=== PATIENT | female | born 1970 | race Caucasian/White ===

== ENCOUNTER 2018-02-19 15:31 | Emergency (ER) | payer MEDICARE, MEDICAID ==
[~2018-02-19] VITALS: Ht 170.2 cm; Wt 55.5 kg
[2018-02-19 22:04] VITALS: BP 117/68
== END 2018-02-19 22:15 | disposition home or self-care (01) ==
LOC: ER 15:31
DX: M79.604 Pain in right leg (principal); Z90.49 Acquired absence of other specified parts of digestive tract; Z88.5 Allergy status to narcotic agent
CPT/HCPCS: 93971; 99284

== ENCOUNTER → 2020-09-23 | Emergency (ER) | payer OTHER, MEDICAID ==
[~2020-09-23] VITALS: Ht 170.2 cm; Wt 57.0 kg
[~2020-09-23] MED LIST: ALBU8HFA PO; ibuprofen 200mg tablet PO ONE
[2020-09-23 09:16] VITALS: BP 104/58
[2020-09-23 10:48] LABS: HEMOGLOBIN 12.9 g/dl (12.0-16.0); MEAN CORPUSCULAR HEMOGLOBIN 33.8 PG (27.0-31.0); MEAN CORPUSCULAR HGB CONC 33.9 g/dL (33.0-36.5); MEAN CORPUSCULAR VOLUME 99.8 FL (78-98); MEAN PLATELET VOLUME 6.6 FL (7.4-10.4); PLATELET COUNT 173 X10'3 (140-440); RED BLOOD COUNT 3.81 X10'6 (4.20-5.60); RED CELL DISTRIBUTION WIDTH 12.9 % (11.5-14.5); WHITE BLOOD COUNT 2.3 X10'3 (4.5-11.0)
[2020-09-23 11:07] LABS: ALANINE AMINOTRANSFERASE 39 U/L (12-78); ALBUMIN/GLOBULIN RATIO 1.3 (1.1-1.5); ALKALINE PHOSPHATASE 65 IU/L (46-116); ANION GAP 7 (8-16); ASPARTATE AMINO TRANSFERASE 34 U/L (10-37); BILIRUBIN,TOTAL 0.4 MG/DL (0.1-1.0); BLOOD UREA NITROGEN 16 MG/DL (7-18); BUN/CREATININE RATIO 16.5 (6.6-38.0); CALCIUM 8.8 MG/DL (8.5-10.1); CHLORIDE 107 MMOL/L (99-107); CREATININE 0.97 MG/DL (0.40-0.90); GLUCOSE 92 MG/DL (70-104); POTASSIUM 4.5 MMOL/L (3.5-5.1); SODIUM 143 MMOL/L (135-145); TOTAL CARBON DIOXIDE 28.6 MMOL/L (24-32); eGFR 61 ML/MIN
[2020-09-23 11:14] LABS: PLATELET ESTIMATE NORMAL; TOTAL CELLS COUNTED 100
== END | disposition home or self-care (01) ==
LOC: ER 09:14
DX: B34.9 Viral infection, unspecified (principal); Z20.828 Contact with and (suspected) exposure to other viral communicable diseases; M19.90 Unspecified osteoarthritis, unspecified site; M32.9 Systemic lupus erythematosus, unspecified; Z90.710 Acquired absence of both cervix and uterus; Z90.49 Acquired absence of other specified parts of digestive tract; Z88.6 Allergy status to analgesic agent; Z88.8 Allergy status to other drugs, medicaments and biological substances
CPT/HCPCS: 71045; 80053; 84145; 85007; 85025; 87502; 87503; 87635; 99284

== ENCOUNTER 2021-11-16 10:47 | Emergency (ER) | payer MEDICARE, MEDICAID ==
[~2021-11-16] VITALS: Ht 170.2 cm; Wt 63.6 kg
[2021-11-16 12:18] LABS: COLOR,URINE YELLOW (Yellow); GLUCOSE, URINE NEGATIVE (Neg); KETONES,URINE NEGATIVE (Neg); LEUKOCYTE ESTERASE ,URINE NEGATIVE (Neg); NITRITES, URINE NEGATIVE (Neg); OCCULT BLOOD,URINE NEGATIVE (Neg); PROTEIN,URINE NEGATIVE (Neg); UROBILINOGEN,URINE 0.2 E.U/dL (0.2-1.0)
[2021-11-16 12:20] LABS: BASOPHILS # (AUTO) 0.1 X10'3 (0-0.2); BASOPHILS % (AUTO) 1.2 % (0-1); EOSINOPHILS # (AUTO) 0.2 X10'3 (0-0.9); EOSINOPHILS % (AUTO) 3.9 % (0-6); HEMATOCRIT 37.4 % (35.0-45.0); HEMOGLOBIN 12.8 g/dl (12.0-16.0); LYMPHOCYTES # (AUTO) 1.6 X10'3 (1.1-4.8); LYMPHOCYTES % (AUTO) 35.8 % (21-51); MEAN CORPUSCULAR HEMOGLOBIN 32.6 PG (27.0-31.0); MEAN CORPUSCULAR HGB CONC 34.1 g/dL (33.0-36.5); MEAN CORPUSCULAR VOLUME 95.5 FL (78-98); MEAN PLATELET VOLUME 6.3 FL (7.4-10.4); MONOCYTES # (AUTO) 0.4 X10'3 (0-0.9); MONOCYTES % (AUTO) 8.7 % (2-12); NEUTROPHILS # (AUTO) 2.2 X10'3 (1.8-7.7); NEUTROPHILS % (AUTO) 50.4 % (42-75); PLATELET COUNT 265 X10'3 (140-440); RED BLOOD COUNT 3.92 X10'6 (4.20-5.60); RED CELL DISTRIBUTION WIDTH 13.1 % (11.5-14.5); WHITE BLOOD COUNT 4.3 X10'3 (4.5-11.0)
[2021-11-16 12:41] LABS: ALANINE AMINOTRANSFERASE 31 U/L (12-78); ALBUMIN/GLOBULIN RATIO 1.4 (1.1-1.5); ALKALINE PHOSPHATASE 66 IU/L (46-116); ANION GAP 7 (8-16); ASPARTATE AMINO TRANSFERASE 27 U/L (10-37); BILIRUBIN,TOTAL 0.7 MG/DL (0.1-1.0); BLOOD UREA NITROGEN 22 MG/DL (7-18); BUN/CREATININE RATIO 22.4 (6.6-38.0); CHLORIDE 106 MMOL/L (99-107); CREATININE 0.98 MG/DL (0.40-0.90); GLUCOSE 104 MG/DL (70-104); POTASSIUM 4.1 MMOL/L (3.5-5.1); SODIUM 142 MMOL/L (135-145); TOTAL CARBON DIOXIDE 28.8 MMOL/L (24-32); TOTAL PROTEIN 6.9 G/DL (6.4-8.2); eGFR 60 ML/MIN
[2021-11-16 12:42] LABS: CALCIUM 9.1 MG/DL (8.5-10.1)
[2021-11-16 12:46] LABS: UA COLLECTION TYPE CLN CATCH MIDSTREAM
[2021-11-16 12:48] LABS: CLARITY,URINE SLIGHTLY CLOUDY (Clear)
[2021-11-16 12:49] LABS: CAL OXALATE CRYSTALS 4+ /HPF (NEGATIVE); SQUAMOUS EPITHELIAL CELL,UR MODERATE /LPF (FEW)
[2021-11-16 12:51] LABS: BACTERIA,URINE FEW /HPF (Neg)
[2021-11-16 12:52] LABS: RBC,URINE 0-2 /HPF (0-2); WBC,URINE 0-4 /HPF (0-4)
[2021-11-16 12:59] VITALS: BP 103/64
== END 2021-11-16 13:19 | disposition home or self-care (01) ==
LOC: ER 10:48
DX: R07.89 Other chest pain (principal); Z20.822 Contact with and (suspected) exposure to COVID-19; R05.9 Cough, unspecified; R30.0 Dysuria; R06.02 Shortness of breath; R53.83 Other fatigue; Z87.440 Personal history of urinary (tract) infections; Z90.89 Acquired absence of other organs; Z90.49 Acquired absence of other specified parts of digestive tract; Z90.710 Acquired absence of both cervix and uterus; Z88.6 Allergy status to analgesic agent; Z88.5 Allergy status to narcotic agent; Z88.8 Allergy status to other drugs, medicaments and biological substances
CPT/HCPCS: 36415; 71045; 80053; 81001; 84484; 85025; 87635; 93005; 99285; C9803

== ENCOUNTER 2024-07-28 14:24 | Emergency (ER) | payer MEDICARE, MEDICAID ==
[~2024-07-28] VITALS: Ht 172.7 cm; Wt 66.0 kg
[2024-07-28 17:29] VITALS: BP 105/59; PULSE 68; RESP 15; TEMP 98.6; O2SAT 96
== END 2024-07-28 18:29 | disposition home or self-care (01) ==
LOC: ER 14:24
DX: U07.1 COVID-19 (principal); R05.9 Cough, unspecified; R07.89 Other chest pain; Z88.8 Allergy status to other drugs, medicaments and biological substances; Z98.890 Other specified postprocedural states; Z90.710 Acquired absence of both cervix and uterus; Z90.49 Acquired absence of other specified parts of digestive tract
CPT/HCPCS: 71045; 93005; 99283

== ENCOUNTER 2025-05-19 11:26 | Outpatient (CLI) | payer MEDICARE, MEDICAID ==
[~2025-05-19 11:26] MED LIST changes: -ALBU8HFA PO; +barium sulfate 340gm for oral suspension 1 BOTTLE SUSP.RECON PO ONE; -ibuprofen 200mg tablet PO ONE
--- NOTE | 2025-05-19 18:04 | RADIOLOGY REPORT ---
Esophagram study:: HISTORY: Dysphasia With the patient in an upright and prone position various consistency barium liquid meals were administered including thin and thick. Fluoroscopic evaluation. Total fluoroscopy time was 1.3 minutes with dose of 33.5 mGy. There are several minimal distal esophageal tertiary contractions but no evidence of stenosis or ulceration. There is a small reducible axial hiatal hernia demonstrated. There is only minor distal gastroesophageal reflux. Relatively faint distal body of the stomach gastric mucosal folds noted, otherwise unremarkable. The duodenal bulb and proximal duodenal sweep appear unremarkable. IMPRESSION: Small reducible axial hiatal hernia with mild gastroesophageal reflux. Minimal tertiary esophageal contractions.
== END 2025-05-19 23:59 | disposition home or self-care (01) ==
LOC: RAD 11:26
PROVIDERS: ATTEND Internal Medicine Gastroenterology
DX: K21.9 Gastro-esophageal reflux disease without esophagitis (principal); K44.9 Diaphragmatic hernia without obstruction or gangrene; R13.10 Dysphagia, unspecified; Q39.3 Congenital stenosis and stricture of esophagus
CPT/HCPCS: 74220